=== PATIENT | female | born 1945 | race Caucasian/White ===

== ENCOUNTER 2018-09-15 20:30 | Outpatient (CLI) | payer MEDICARE, BC | END 2018-09-15 20:31 | disposition home or self-care (01) | LOC: SLEEPLAB 20:30 | PROVIDERS: ATTEND Internal Medicine | DX: G47.10 Hypersomnia, unspecified (principal); G31.84 Mild cognitive impairment of uncertain or unknown etiology; R53.83 Other fatigue; G47.00 Insomnia, unspecified; F41.8 Other specified anxiety disorders; R06.83 Snoring; G47.61 Periodic limb movement disorder; Z68.21 Body mass index [BMI] 21.0-21.9, adult | CPT/HCPCS: 95810 ==

== ENCOUNTER 2023-08-03 07:46 | Outpatient (CLI) | payer MEDICARE, BC ==
[2023-08-03 08:59] VITALS: BP 199/86; TEMP 98.1
[2023-08-03] MEDS ORDERED: FLU VACC QS2023(65UP)/MF59C/PF 60 MCG/0.5 ML SYRINGE IM ONE (14:00)
== END 2023-08-03 11:56 | disposition home or self-care (01) ==
LOC: MRI 07:46
PROVIDERS: ATTEND Neurological Surgery
DX: R26.89 Other abnormalities of gait and mobility (principal); G91.9 Hydrocephalus, unspecified
CPT/HCPCS: 62270; 72141